=== PATIENT | male | born 1940 | race Caucasian/White ===

== ENCOUNTER → 2023-04-12 | Outpatient (CLI) | payer MEDICARE, OTHER ==
[~2023-04-12] MED LIST: ASPI-1071 PO; CIPR-202 PO; KRIL500C PO; LYSI500T3 PO; OMEP20CA15 PO; TERA5CAP4 PO; VITC500T PO
[2023-04-12 07:34] LABS: TOTAL HEMOGLOBIN 14.9 G/dl (14.0-17.9)
== END | disposition home or self-care (01) ==
LOC: RT 07:10
PROVIDERS: ATTEND Internal Medicine
DX: R06.02 Shortness of breath (principal)
CPT/HCPCS: 85018; 94010; 94727; 94729